=== PATIENT | male | born 1990 | race African-American/Black ===

== ENCOUNTER 2019-09-21 10:25 | Emergency (ER) | payer SELFPAY ==
[~2019-09-21] VITALS: Ht 170.2 cm; Wt 87.0 kg
[2019-09-21] MEDS ORDERED: METOCLOPRAMIDE HCL 10MG/2ML VIAL IM ONE (11:00)
[2019-09-21] MEDS ORDERED: KETOROLAC 60MG/2ML VIAL IM ONE (11:00)
[2019-09-21 12:05] VITALS: BP 131/91
== END 2019-09-21 12:20 | disposition home or self-care (01) ==
LOC: ER 10:25
DX: R51 Headache (principal); F12.10 Cannabis abuse, uncomplicated; J45.909 Unspecified asthma, uncomplicated; F17.210 Nicotine dependence, cigarettes, uncomplicated
CPT/HCPCS: 96372; 99283; J1885; J2765

== ENCOUNTER 2019-11-22 07:53 | Emergency (ER) | payer MEDICAID ==
[~2019-11-22] VITALS: Ht 170.2 cm; Wt 73.0 kg
[2019-11-22] MEDS ORDERED: AMOXICILLIN/POTASSIUM CLAVULANATE 875/125MG TAB PO ONE (08:30)
[2019-11-22] MEDS ORDERED: IBUPROFEN 600MG TABLET PO ONE (08:30)
[2019-11-22 08:47] VITALS: BP 122/76
== END 2019-11-22 08:49 | disposition home or self-care (01) ==
LOC: ER 07:53
DX: K02.9 Dental caries, unspecified (principal); R22.0 Localized swelling, mass and lump, head; J45.909 Unspecified asthma, uncomplicated
CPT/HCPCS: 99283

== ENCOUNTER 2021-11-05 08:26 | Emergency (ER) | payer MEDICAID, OTHER ==
[~2021-11-05] VITALS: Ht 170.2 cm; Wt 82.0 kg
[2021-11-05 08:31] VITALS: BP 115/69
[2021-11-05] MEDS ORDERED: ALBU6.7H9 INH (08:48)
== END 2021-11-05 09:11 | disposition home or self-care (01) ==
LOC: ER 08:26
DX: B34.9 Viral infection, unspecified (principal); Z20.822 Contact with and (suspected) exposure to COVID-19
CPT/HCPCS: 99283; C9803; U0003; U0005

== ENCOUNTER 2022-05-27 09:30 | Emergency (ER) | payer MEDICAID ==
[~2022-05-27] VITALS: Ht 170.2 cm; Wt 80.0 kg
[~2022-05-27 09:30] MED LIST: ALBU6.7H9 INH
[2022-05-27 09:52] VITALS: BP 146/74
[2022-05-27] MEDS ORDERED: METHYLPREDNISOLONE SOD SUCC 125 MG/2 ML VIAL IM STA (10:54)
[2022-05-27] MEDS ORDERED: IPRATROPIUM BROMIDE (0.02%) 0.5MG/2.5ML NEB HHN STA (10:54)
[2022-05-27] MEDS ORDERED: ALBUTEROL (0.083%) 2.5MG/3ML NEB HHN STA (10:54)
[2022-05-27] MEDS ORDERED: ACETAMINOPHEN 325MG TABLET PO STA (10:54)
[2022-05-27] MEDS ORDERED: ACET-2708 PO (12:11)
[2022-05-27] MEDS ORDERED: P50 PO (12:11)
[2022-05-27] MEDS ORDERED: ALBU18HF2 IH (12:11)
[2022-05-27] MEDS ORDERED: BECL10.62 INH (12:17)
== END 2022-05-27 13:28 | disposition home or self-care (01) ==
LOC: ER 09:30
DX: J45.901 Unspecified asthma with (acute) exacerbation (principal)
CPT/HCPCS: 94640; 96372; 99283; J2930; Z7610; 94664

== ENCOUNTER 2022-09-28 17:44 | Emergency (ER) | payer MEDICAID ==
[~2022-09-28] VITALS: Ht 170.2 cm; Wt 82.0 kg
[~2022-09-28 17:44] MED LIST changes: +ACET-2708 PO; +ALBU18HF2 IH; +ALBU6.7H3 INH; -ALBU6.7H9 INH; +BECL10.62 INH; +P50 PO
[2022-09-28 18:06] VITALS: BP 116/74
== END 2022-09-29 01:37 | disposition left against medical advice (07) ==
LOC: ER 17:44
DX: R06.02 Shortness of breath (principal)
CPT/HCPCS: 71045; 99283

== ENCOUNTER 2022-11-16 19:30 | Emergency (ER) | payer MEDICAID ==
[~2022-11-16] VITALS: Ht 170.2 cm; Wt 83.0 kg
[2022-11-16] MEDS ORDERED: MORPHINE SULFATE 4 MG/ML CPJ (NOT FOR IM USE) IV STA (20:26)
[2022-11-16 20:56] LABS: EOSINOPHILS % 1.4 % (0.0-5.0); HEMATOCRIT. 41.6 % (42.0-52.0); HEMOGLOBIN. 14.7 g/dL (14.0-18.0); LYMPHOCYTES % 32.4 % (20.0-50.0); MEAN CORPUSCULAR HEMOGLOBIN 31.9 pg (28.0-32.0); MEAN CORPUSCULAR VOLUME 90.3 fL (80.0-94.0); MEAN PLATELET VOLUME 7.1 fl (7.4-10.4); MONOCYTES % 11.6 % (2.0-8.0); NEUTROPHILS % 53.6 % (40.0-76.0); PLATELET 229 x1000/uL (130-400); RED CELL DISTRIBUTION WIDTH 12.4 % (11.6-14.6)
[2022-11-16 21:02] LABS: CHLORIDE 104 mEq/L (98-107)
[2022-11-16 21:09] LABS: PROTHROMBIN TIME 10.5 sec (9.6-11.0)
[2022-11-16] MEDS ORDERED: IOHEXOL-300 100 ML BOTTLE ONE (21:43)
[2022-11-17] MEDS ORDERED: MORPHINE SULFATE 10 MG/ML CPJ IV ONE (00:15)
[2022-11-17] MEDS ORDERED: LIDOCAINE HCL/PF 1% 10 MG/ML 5ML VIAL INFIL ONE (00:15)
[2022-11-17 00:47] VITALS: BP 122/75
[2022-11-17] MEDS ORDERED: IBUP-2029 MT (01:07)
[2022-11-17] MEDS ORDERED: T3 PO (02:23)
[2022-11-17] MEDS ORDERED: CEPH500C2 MT (02:24)
== END 2022-11-17 02:53 | disposition home or self-care (01) ==
LOC: ER 19:30
DX: L02.215 Cutaneous abscess of perineum (principal); J45.909 Unspecified asthma, uncomplicated
CPT/HCPCS: 36415; 72193; 80053; 85025; 85610; 96374; 96376; 99285; J2270; J3490; Q9967; Z7610

== ENCOUNTER 2022-11-19 08:49 | Emergency (ER) | payer MEDICAID ==
[~2022-11-19] VITALS: Ht 170.2 cm; Wt 83.0 kg
[~2022-11-19 08:49] MED LIST changes: +CEPH500C2 MT; +IBUP-2029 MT; +T3 PO
[2022-11-19 08:52] VITALS: BP 115/72
== END 2022-11-19 09:54 | disposition home or self-care (01) ==
LOC: ER 08:49
DX: Z48.00 Encounter for change or removal of nonsurgical wound dressing (principal)
CPT/HCPCS: 99281

== ENCOUNTER 2023-08-31 12:03 | Emergency (ER) | payer MEDICAID ==
[~2023-08-31] VITALS: Ht 172.7 cm; Wt 81.6 kg
[2023-08-31 12:13] VITALS: TEMP 98.6; O2SAT 100
[2023-08-31] MEDS ORDERED: IBUPROFEN 600MG TABLET PO ONE (14:15)
[2023-08-31] MEDS ORDERED: IBUP-2029 MT (15:14)
[2023-08-31 16:00] VITALS: BP 131/76; PULSE 86; RESP 16
[2023-08-31] MEDS ORDERED: IBUPROFEN 600MG TABLET PO NR (16:00)
== END 2023-08-31 16:10 | disposition home or self-care (01) ==
LOC: ER 12:03
DX: S60.011A Contusion of right thumb without damage to nail, initial encounter (principal); J45.909 Unspecified asthma, uncomplicated; W01.0XXA Fall on same level from slipping, tripping and stumbling without subsequent striking against object, initial encounter; Y93.89 Activity, other specified; Y92.89 Other specified places as the place of occurrence of the external cause; Y99.8 Other external cause status
CPT/HCPCS: 29125; 73130; 99283

== ENCOUNTER 2023-09-11 13:58 | Emergency (ER) | payer MEDICAID ==
[~2023-09-11] VITALS: Ht 172.7 cm; Wt 70.0 kg
[2023-09-11 15:15] VITALS: O2SAT 100
[2023-09-11] MEDS ORDERED: FLUORESCEIN SODIUM 1MG/STRIP LEFTEYE ONE (15:30)
[2023-09-11] MEDS ORDERED: NEOM7.5D8 LEFTEYE (15:31)
[2023-09-11] MEDS ORDERED: TETRACAINE 0.5% OPHTH DROPS 4ML BOTHEYE ONE (16:15)
[2023-09-11 18:26] VITALS: BP 134/78; PULSE 70; RESP 16; TEMP 98.9
== END 2023-09-11 18:27 | disposition home or self-care (01) ==
LOC: ER 14:00
DX: H10.9 Unspecified conjunctivitis (principal); J45.909 Unspecified asthma, uncomplicated; Z79.899 Other long term (current) drug therapy
CPT/HCPCS: 99283

== ENCOUNTER 2024-01-20 15:39 | Emergency (ER) | payer MEDICAID ==
[~2024-01-20] VITALS: Ht 170.2 cm; Wt 82.0 kg
[~2024-01-20 15:39] MED LIST changes: +NEOM7.5D8 LEFTEYE
[2024-01-20 15:58] VITALS: TEMP 98.2; O2SAT 100
[2024-01-20 17:38] VITALS: BP 132/85; PULSE 85; RESP 12
[2024-01-20] MEDS: DEXAMETHASONE 10 MG/ML VIAL IM ONE (17:38)
[2024-01-20] MEDS: KETOROLAC 60MG/2ML VIAL IM STA (17:38)
[2024-01-20] MEDS ORDERED: NAPR-681 PO (17:47)
[2024-01-20] MEDS ORDERED: T3 PO (17:47)
== END 2024-01-20 19:09 | disposition home or self-care (01) ==
LOC: ER 15:52
DX: M76.61 Achilles tendinitis, right leg (principal); J45.909 Unspecified asthma, uncomplicated
CPT/HCPCS: 99284; 29515; 73610; 96372; J1100; J1885

== ENCOUNTER 2024-04-05 10:00 | Emergency (ER) | payer MEDICAID ==
[~2024-04-05] VITALS: Ht 172.7 cm; Wt 82.0 kg
[~2024-04-05 10:00] MED LIST changes: +NAPR-681 PO
[2024-04-05 10:25] VITALS: O2SAT 100
[2024-04-05] MEDS ORDERED: ERYT1OIN6 RIGHTEYE (12:21)
[2024-04-05 13:00] VITALS: BP 124/87; PULSE 61; RESP 18; TEMP 98
== END 2024-04-05 13:18 | disposition home or self-care (01) ==
LOC: ER 10:00
DX: H00.012 Hordeolum externum right lower eyelid (principal); J45.909 Unspecified asthma, uncomplicated
CPT/HCPCS: 99283